=== PATIENT | male | born 1940 | race Caucasian/White ===

== ENCOUNTER 2016-12-11 19:31 | Emergency (ER) | payer MEDICARE ==
[2016-12-11] MEDS ORDERED: Furosemide 40 MG/4 ML VIAL ONE (20:27)
[2016-12-11] MEDS ORDERED: Furosemide 40 MG/4 ML VIAL IVPUSH ONE (20:28)
--- NOTE | 2016-12-11 22:45 | EDM.PDOC ---
ED HPI GENERAL MEDICAL PROBLEM - General Chief Complaint: Cardiovascular Problem Stated Complaint: ISSUES WITH COPD Time Seen by Provider: 12/11/16 21:06 Source of Information: Reports: Patient History Limitations: Reports: No Limitations - History of Present Illness INITIAL COMMENTS - FREE TEXT/NARRATIVE: History of present illness: [This 76-year-old male [facility] work was done and a BMP was a part of that panel. Apparently the results came back after they had left and it was elevated and so the physician clinic office assistant called the of this gentleman and suggested that he see his primary care doctor right away or go to the ER. Hence their trip here to the ER. 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 Systems Protection Technician made some adjustments in his inhalers today. He scheduled for an echocardiogram in a few other studies. He's basically at his baseline he has been gradually getting more and more short of breath over the last 3 months. He denies any chest pain denies a history of DC. 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 That CVA has left him with some trouble with his vision otherwise he has full-strength of his upper and lower extremities. He continues to smoke and believes that his troubles and have nothing to do with his smoking.] Review of systems: As per history of present illness and below otherwise all systems reviewed and negative. Past medical history: As per history of present illness and as reviewed below otherwise noncontributory. Surgical history: As per history of present illness and as reviewed below otherwise noncontributory. Social history: No reported history of drug or alcohol abuse. Family history: As per history of present illness and as reviewed below otherwise noncontributory. Physical exam: HEENT: Atraumatic, normocephalic, pupils reactive, negative for conjunctival pallor or scleral icterus, mucous membranes moist, throat clear, neck supple, nontender, trachea midline. Lungs: Poor air exchange throughout but no crackles Heart: Irregular rate and rhythm heart sounds distant no murmurs Abdomen: Soft, nondistended, nontender. Negative for masses or hepatosplenomegaly. Negative for costovertebral tenderness. Pelvis: Stable nontender. Genitourinary: Deferred. Rectal: Deferred. Extremities: Atraumatic, negative for cords or calf pain. Neurovascular unremarkable. Neuro: Awake, alert, oriented. Cranial nerves II through XII unremarkable. Cerebellum unremarkable. Motor and sensory unremarkable throughout. Exam nonfocal. Diagnostics: [EKG is demonstrating A. fib with a rate of 120. Chest x-ray shows a small heart and lung arizmendi that are dark and consistent with COPD I don't believe there is much CHF present on this chest x-ray. Troponin was negative] Therapeutics: [I did give him 40 of Lasix IV but in retrospect I'm not sure that he needed.] Impression: [Elevated BNP secondary to COPD and A. fib.] Plan: [I'm not making any changes in his meds he's got an appointment with Dr. Bucio in the morning she will followup with him at that time I'm giving a copy of his EKG to show to Dr. Bucio. I'm not sure he would be a good candidate for anticoagulantion given his other core morbidities] Definitive disposition and diagnosis as appropriate pending reevaluation and review of above. - Related Data Allergies Allergy/AdvReac Type Severity Reaction Status Date / Time No Known Allergies Allergy Verified 12/11/16 20:12 Home Meds: Home Meds Albuterol [Proventil Neb Soln] 2.5 mg .XX ASDIRECTED 12/11/16 [History] Albuterol/Ipratropium [Combivent Respimat] 4 gm IH ASDIRECTED 12/11/16 [History] Albuterol/Ipratropium [DuoNeb 3.0-0.5 MG/3 ML] 3 ml .XX ASDIRECTED 12/11/16 [ History] Budesonide [Pulmicort] 0.5 mg IH ASDIRECTED 12/11/16 [History] Formoterol Fumarate [Perforomist] 20 mcg IH BID 12/11/16 [History] Lovastatin 20 mg PO DAILY 12/11/16 [History] Past Medical History HEENT History: Reports: Impaired Vision Respiratory History: Reports: COPD Genitourinary History: Reports: BPH Neurological History: Reports: CVA - Infectious Disease History Infectious Disease History: Reports: Chicken Pox, MRSA, Mumps - Past Surgical History Musculoskeletal Surgical History: Reports: Shoulder Surgery Social & Family History - Tobacco Use Smoking Status *Q: Current Every Day Smoker Years of Tobacco use: 65 Packs/Tins Daily: 0.5 - Caffeine Use Caffeine Use: Reports: Coffee, Soda - Recreational Drug Use Recreational Drug Use: No ED ROS GENERAL - Review of Systems Review Of Systems: ROS reveals no pertinent complaints other than HPI. ED EXAM, GENERAL - Physical Exam Exam: See Below Course - Vital Signs Last Recorded V/S: Last Vital Signs Temp 36.5 C 12/11/16 20:14 Pulse 95 12/11/16 20:14 Resp 26 H 12/11/16 20:14 BP 128/74 12/11/16 20:29 Pulse Ox 95 12/11/16 20:14 - Orders/Labs/Meds Orders: Active Orders 24 hr Category Date Time Status EKG Documentation Completion [RC] ASDIRECTED Care 12/11/16 21:32 Active Chest 2V [CR] Stat Exams 12/11/16 21:31 Taken EKG 12 Lead [EK] Stat Ther 12/11/16 21:31 Ordered Labs: Laboratory Tests 12/11/16 12/11/16 12/11/16 Range/Units 21:31 21:31 21:31 WBC 5.5 (4.5-11.0) K/uL RBC 4.94 (4.30-5.90) M/uL Hgb 14.7 (12.0-15.0) g/dL Hct 44.3 (40.0-54.0) % MCV 90 (80-98) fL MCH 30 (27-31) pg MCHC 33 (32-36) % Plt Count 212 (150-400) K/uL Neut % (Auto) 66 (36-66) % Lymph % (Auto) 17 L (24-44) % [place] % (Auto) 15 H (2-6) % Eos % (Auto) 1 L (2-4) % Baso % (Auto) 1 (0-1) % ABG Hemoglobin 14.8 (13.5-18.0) g/dL ABG Oxyhemoglobin 80.8 % ABG Carboxyhemoglobin 3.4 H (0.0-1.6) % ABG Methemoglobin 0.7 % VBG pH 7.339 L (7.350-7.450) VBG pCO2 73.6 mm/Hg VBG pO2 49.7 mm/Hg VBG HCO3 38.6 mmol/L VBG Total CO2 34.3 mmol/L VBG O2 Saturation 84.3 VBG O2 Content 16.8 %vol VBG Base Excess 9.8 mm/L O2 Delivery Device Nasal cannula Sodium 130 L (140-148) mmol/L Potassium 4.3 (3.6-5.2) mmol/L Chloride 89 L (100-108) mmol/L Carbon Dioxide 38 H (21-32) mmol/L Anion Gap 7.3 (5.0-14.0) mmol/L BUN 8 (7-18) mg/dL Creatinine 0.7 L (0.8-1.3) mg/dL Est Cr Clr Drug Dosing 89.78 mL/min Estimated GFR (MDRD) > 60 (>60) Glucose 109 H (74-106) mg/dL Calcium 8.9 (8.5-10.1) mg/dL Total Bilirubin 0.6 (0.2-1.0) mg/dL AST 23 (15-37) U/L ALT 27 (12-78) U/L Alkaline Phosphatase 67 (46-116) U/L Troponin I 0.032 (0.000-0.056) ng/mL [id number] Pept 4016 H (5-450) pg/mL Total Protein 7.3 (6.4-8.2) g/dL Albumin 3.8 (3.4-5.0) g/dL Globulin 3.5 (2.3-3.5) g/dL Albumin/Globulin Ratio 1.1 L (1.2-2.2) Meds: Medications Discontinued Medications Generic Name Dose Route Start Last Admin Trade Name Freq PRN Reason Stop Dose Admin Furosemide Confirm 12/11/16 20:27 12/11/16 20:29 Lasix Administered 12/11/16 20:28 Not Given Dose 40 mg .ROUTE .STK-MED ONE Furosemide 40 mg 12/11/16 20:28 12/11/16 20:29 Lasix IVPUSH 12/11/16 20:29 40 mg ONETIME ONE Administration Departure - Departure Time of Disposition: 22:44 Disposition: Home, Self-Care 01 Condition: fair Clinical Impression: COPD (chronic obstructive pulmonary disease) Qualifiers: COPD type: COPD with acute exacerbation Qualified Code(s): J44.1 - Chronic obstructive pulmonary disease with (acute) exacerbation Forms: ED Department Discharge Additional Instructions: Please followup with Dr. Bucio as we discussed. - My Orders Last 24 Hours: My Active Orders 12/11/16 21:31 Chest 2V [CR] Stat EKG 12 Lead [EK] Stat 12/11/16 21:32 EKG Documentation Completion [RC] ASDIRECTED - Assessment/Plan Last 24 Hours: My Active Orders 12/11/16 21:31 Chest 2V [CR] Stat EKG 12 Lead [EK] Stat 12/11/16 21:32 EKG Documentation Completion [RC] ASDIRECTED
[2016-12-11 22:46] VITALS: BP 131/64
--- NOTE | 2016-12-12 09:04 | CR ---
Heart size within normal limits. Emphysematous change. Pulmonary hyperexpansion. Kyphosis of the tho racic spine. No focal consolidation.
== END 2016-12-11 23:01 | disposition home or self-care (01) ==
LOC: JP.ED 19:31
DX: J44.1 Chronic obstructive pulmonary disease with (acute) exacerbation (principal); R78.89 Finding of other specified substances, not normally found in blood; F17.210 Nicotine dependence, cigarettes, uncomplicated; Z86.73 Personal history of transient ischemic attack (TIA), and cerebral infarction without residual deficits; Z98.890 Other specified postprocedural states; Z79.899 Other long term (current) drug therapy
CPT/HCPCS: 36415; 71020; 80053; 82803; 83880; 84484; 85025; 93005; 96374; 99284; J1940; 93010